=== PATIENT | female | born 1985 | race Caucasian/White ===

== ENCOUNTER 2019-03-16 20:33 | Emergency (ER) | payer OTHER ==
[2019-03-16 22:08] LABS: Urine Blood TRACE (NEG); Urine Glucose TRACE (NEG); Urine Protein 1+ (NEG); Urine Specific Gravity 1.025 (1.005-1.030); Urine pH 6.5 (5.0-7.0)
[2019-03-16 22:31] LABS: Urine Bacteria >50 /HPF (<20); Urine Culture Reflex Order REFLEXED; Urine RBC <5 /HPF (NONE SEEN)
--- NOTE | 2019-03-16 23:37 | ER ---
Nurse's Notes [facility] Name: Gwendolyn Al Age: 34 yrs Sex: Female : 1985 Arrival Date: 03/16/2019 Time: 20:44 Bed 16 Private MD: Diagnosis: Constipation;Urinary tract infection, site not specified Presentation: 03/16 20:50 Presenting complaint: Patient states: Reports left back pain for 1 week with HX of aj kidney stones. Transition of care: patient was not received from another setting of care. Care prior to arrival: None. 20:50 Method Of Arrival: Ambulatory aj 20:50 Acuity: SAMARIA 3 aj 21:15 Onset of symptoms was March 16, 2019. Risk Assessment: Do you want to hurt yourself or ea someone else? Patient reports no desire to harm self or others. Initial Sepsis Screen: Does the patient meet any 2 criteria? No. Patient's initial sepsis screen is negative. Does the patient have a suspected source of infection? No. Patient's initial sepsis screen is negative. Triage Assessment: 20:51 General: Appears in no apparent distress. comfortable, Behavior is calm, cooperative, aj appropriate for age. Pain: Complains of pain in posterior aspect of left lateral abdomen and anterior aspect of left lateral abdomen. Neuro: Level of Consciousness is awake, alert, obeys commands, Oriented to person, place, time, situation, Appropriate for age. Respiratory: Airway is patent Respiratory effort is even, unlabored, Respiratory pattern is regular, symmetrical. GI: No signs and/or symptoms were reported involving the gastrointestinal system. : Reports pain in left flank(s), in lower back. : Reports burning with urination. Derm: Skin is intact, is healthy with good turgor, Skin is pink, warm \T\ dry. normal. Historical: - Allergies: 20:51 No Known Allergies; aj - Immunization history:: Adult Immunizations up to date. - Social history:: Smoking status: Patient/guardian denies using tobacco. - Ebola Screening: : No symptoms or risks identified at this time. Screenin:15 Abuse screen: Denies threats or abuse. Nutritional screening: No deficits noted. ea Tuberculosis screening: No symptoms or risk factors identified. Fall Risk None identified. Assessment: 21:40 General: Appears uncomfortable, Behavior is calm, cooperative, appropriate for age. ea Pain: Complains of pain in anterior aspect of left lateral abdomen and posterior aspect of left lateral abdomen. Neuro: Level of Consciousness is awake, alert, obeys commands, Oriented to person, place, time, situation. Cardiovascular: Patient's skin is warm and dry. Respiratory: Airway is patent Respiratory effort is even, unlabored, Respiratory pattern is regular, symmetrical. GI: Abdomen is non-distended, obese, Bowel sounds present X 4 quads. Abd is soft and non tender X 4 quads. Abd is soft X 4 quads. Derm: Skin is pink, warm \T\ dry. 22:21 Reassessment: Patient and/or family updated on plan of care and expected duration. Pain ea level reassessed. Patient is alert, oriented x 3, equal unlabored respirations, skin warm/dry/pink. Pt taken to CT. 23:12 Reassessment: Patient and/or family updated on plan of care and expected duration. Pain ea level reassessed. Patient is alert, oriented x 3, equal unlabored respirations, skin warm/dry/pink. Awaiting on CT results. 03/17 00:10 Reassessment: Patient and/or family updated on plan of care and expected duration. Pain ea level reassessed. Patient is alert, oriented x 3, equal unlabored respirations, skin warm/dry/pink. Discharge instruction given to patient, verbalized the understanding of instruction. Pt left ED ambulatory tolerating well. Vital Signs: 03/16 20:51 BP 126 / 74; Pulse 100; Resp 19; Temp 98.2; Pulse Ox 99% on R/A; Weight 108.86 kg; aj Height 5 ft. 10 in. (177.80 cm); 22:04 BP 114 / 72; Pulse 101; Resp 18; Pulse Ox 98% ; ea 23:50 BP 123 / 68; Pulse 90; Resp 18; Temp 98.2; Pulse Ox 99% on R/A; ea 20:51 Body Mass Index 34.44 (108.86 kg, 177.80 cm) aj ED Course: 20:44 Patient arrived in ED. es 20:51 Triage completed. aj 20:51 Arm band placed on right wrist. aj 21:03 Margi Story FNP-C is [facility]. kb 21:03 Brigid Gallagher MD is Attending Physician. kb 21:06 Jaqueline Hoyt, RN is Primary Nurse. ea 21:15 Patient has correct armband on for positive identification. Bed in low position. Call ea light in reach. Side rails up X 1. 22:43 CT Stone Protocol In Process Unspecified. EDHI 03/17 00:10 No provider procedures requiring assistance completed. Patient did not have IV access ea during this emergency room visit. Administered Medications: 00:14 Drug: Augmentin 875 mg Route: PO; ea 00:15 Follow up: Response: Medication administered at discharge. ea Outcome: 03/16 23:36 Discharge ordered by MD. kb 03/17 00:14 Patient left the ED. ea 00:15 Discharged to home ambulatory. ea 00:15 Discharged to home ambulatory. 00:15 Condition: improved 00:15 Discharge instructions given to patient, Instructed on discharge instructions, follow up and referral plans. medication usage, Demonstrated understanding of instructions, follow-up care, medications. 00:15 Prescriptions given X 1. Signatures: Dispatcher [employer] EDHI Margi Story, SCIENCE EDUCATION PROFESSOR-C SCIENCE EDUCATION PROFESSOR-Adele Palmer, RN Linda Levi Elena, RN NAVNEET mchugh
--- NOTE | 2019-03-16 23:37 | EDPHYS ---
Physician Documentation [facility] Name: Gwendolyn Al Age: 34 yrs Sex: Female : 1985 Arrival Date: 03/16/2019 Time: 20:44 Bed 16 Private MD: ED Physician Brigid Gallagher HPI: 03/17 00:05 This 34 yrs old Female presents to ER via Ambulatory with complaints of kb Possible Kidney Stone, Finger Injury, Leg Injury. 00:05 The patient presents with flank pain, bilaterally, urinary symptoms, dysuria, kb frequency. Onset: The symptoms/episode began/occurred 1 week(s) ago. Modifying factors: The symptoms are alleviated by nothing, the symptoms are aggravated by nothing. Associated signs and symptoms: Pertinent positives: dysuria, urinary frequency, flank pain. Severity of symptoms: At their worst the symptoms were moderate, in the emergency department the symptoms are unchanged. The patient has experienced similar episodes in the past, several times. The patient has not recently seen a physician. Historical: - Allergies: 03/16 20:51 No Known Allergies; aj - Immunization history:: Adult Immunizations up to date. - Social history:: Smoking status: Patient/guardian denies using tobacco. - Ebola Screening: : No symptoms or risks identified at this time. ROS: 03/17 00:05 Constitutional: Negative for fever, chills, and weight loss, Cardiovascular: Negative kb for chest pain, palpitations, and edema, Respiratory: Negative for shortness of breath, cough, wheezing, and pleuritic chest pain, Abdomen/GI: Negative for abdominal pain, nausea, vomiting, diarrhea, and constipation, MS/Extremity: Negative for injury and deformity, Skin: Negative for injury, rash, and discoloration, Neuro: Negative for headache, weakness, numbness, tingling, and seizure. Back: Positive for flank pain, bilaterally. : Positive for urinary symptoms, flank pain, urinary frequency, burning with urination. Exam: 00:04 Constitutional: This is a well developed, well nourished patient who is awake, alert, kb and in no acute distress. Head/Face: Normocephalic, atraumatic. ENT: Nares patent. No nasal discharge, no septal abnormalities noted. Tympanic membranes are normal and external auditory canals are clear. Oropharynx with no redness, swelling, or masses, exudates, or evidence of obstruction, uvula midline. Mucous membranes moist. Neck: Trachea midline, no thyromegaly or masses palpated, and no cervical lymphadenopathy. Supple, full range of motion without nuchal rigidity, or vertebral point tenderness. No Meningismus. Chest/axilla: Normal chest wall appearance and motion. Nontender with no deformity. No lesions are appreciated. Cardiovascular: Regular rate and rhythm with a normal S1 and S2. No gallops, murmurs, or rubs. Normal PMI, no JVD. No pulse deficits. Respiratory: Lungs have equal breath sounds bilaterally, clear to auscultation and percussion. No rales, rhonchi or wheezes noted. No increased work of breathing, no retractions or nasal flaring. Abdomen/GI: Soft, non-tender, with normal bowel sounds. No distension or tympany. No guarding or rebound. No evidence of tenderness throughout. Skin: Warm, dry with normal turgor. Normal color with no rashes, no lesions, and no evidence of cellulitis. MS/ Extremity: Pulses equal, no cyanosis. Neurovascular intact. Full, normal range of motion. Neuro: Awake and alert, GCS 15, oriented to person, place, time, and situation. Cranial nerves II-XII grossly intact. Motor strength 5/5 in all extremities. Sensory grossly intact. Cerebellar exam normal. Normal gait. 00:04 Back: CVA tenderness, that is mild, is noted bilaterally. Vital Signs: 03/16 20:51 BP 126 / 74; Pulse 100; Resp 19; Temp 98.2; Pulse Ox 99% on R/A; Weight 108.86 kg; aj Height 5 ft. 10 in. (177.80 cm); 22:04 BP 114 / 72; Pulse 101; Resp 18; Pulse Ox 98% ; ea 23:50 BP 123 / 68; Pulse 90; Resp 18; Temp 98.2; Pulse Ox 99% on R/A; ea 20:51 Body Mass Index 34.44 (108.86 kg, 177.80 cm) aj MDM: 21:05 Patient medically screened. kb 23:21 Data reviewed: vital signs, nurses notes. Data interpreted: Pulse oximetry: on room air kb is 98 %. Interpretation: normal. Counseling: I had a detailed discussion with the patient and/or guardian regarding: the historical points, exam findings, and any diagnostic results supporting the discharge/admit diagnosis, lab results, radiology results, the need for outpatient follow up, a family practitioner, to return to the emergency department if symptoms worsen or persist or if there are any questions or concerns that arise at home. 03/16 21:24 Order name: Urine Microscopic Only; Complete Time: 22:36 kb 03/16 21:59 Order name: Urine Dipstick--Ancillary (enter results); Complete Time: 22:14 oe 03/16 21:59 Order name: Urine --Ancillary (enter results); Complete Time: 22:14 oe 03/16 22:14 Order name: CT Stone Protocol kb 03/16 22:35 Order name: Urine Culture EDOR 03/16 21:24 Order name: Urine Test (obtain specimen); Complete Time: 22:09 kb 03/16 21:24 Order name: Urine Dipstick-Ancillary (obtain specimen); Complete Time: 22:09 kb Administered Medications: 03/17 00:14 Drug: Augmentin 875 mg Route: PO; ea 00:15 Follow up: Response: Medication administered at discharge. jeison Disposition: 02:19 Co-signature as Attending Physician, Brigid Gallagher MD. ma2 Disposition: 03/16/19 23:36 Discharged to Home. Impression: Constipation, Urinary tract infection, site not specified. - Condition is Stable. - Discharge Instructions: Constipation, Adult, [id number], Urinary Tract Infection, Adult, [id number]. - Prescriptions for Augmentin 875- 125 mg Oral Tablet - take 1 tablet by ORAL route every 12 hours for 10 days; 20 tablet. - Medication Reconciliation Form, Thank You Letter, Antibiotic Education, Prescription Opioid Use form. - Follow up: Emergency Department; When: As needed; Reason: Worsening of condition. Follow up: Private Physician; When: 2 - 3 days; Reason: Recheck today's complaints, Continuance of care, Re-evaluation by your physician. Signatures: Dispatcher [employer] Margi Yee, LINDA BENSON-Adele Palmer RN Jaqueline Hernandez RN RN ea Alzahri, Mohammad, MD MD ma2 Corrections: (The following items were deleted from the chart) 00:14 03/16 23:36 03/16/2019 23:36 Discharged to Home. Impression: Constipation; Urinary ea tract infection, site not specified. Condition is Stable. Forms are Medication Reconciliation Form, Thank You Letter, Antibiotic Education, Prescription Opioid Use. Follow up: Emergency Department; When: As needed; Reason: Worsening of condition. Follow up: Private Physician; When: 2 - 3 days; Reason: Recheck today's complaints, Continuance of care, Re-evaluation by your physician. kb
[2019-03-17] MEDS ORDERED: AMOX/K CLAV 875 MG TAB ONE (00:09)
--- NOTE | 2019-03-17 11:24 | RAD REPORT ---
EXAM DESCRIPTION: CT - Stone Protocol - 03/17/2019 1:14 am CLINICAL HISTORY: 34 years Female, FLANK PAIN COMPARISON: None. TECHNIQUE: 3 mm axial images of the abdomen and pelvis were obtained without intravenous contrast. 3 mm coronal and sagittal reformatted images were obtained. This exam was performed according to our departmental dose-optimization program, which includes autom ated exposure control, adjustment of the mA and/or kV according to patient size and/or use of iterati ve reconstruction technique. INTRAVENOUS CONTRAST: None. FINDINGS: Lung bases: Normal. Liver: Normal. Spleen: Normal. Pancreas: Normal. Gallbladder: Normal. Right adrenal gland: Normal. Left adrenal gland: Normal. Right kidney: There are numerous nonobstructing stones within the renal papillae throughout the kidne y suggestive of medullary sponge kidney. The ureter is unremarkable. Left kidney: There are numerous nonobstructing stones within the renal papillae throughout the kidney suggestive of medullary sponge kidney. The ureter is unremarkable. Retroperitoneal structures: Normal. Bowel survey: There is a large residual stool throughout the ascending, transverse, and descending co moise. The distal ileum is unremarkable. The appendix is unremarkable.. Urinary bladder: Normal. Uterus and adnexa: Normal. Peritoneal cavity: Normal. Mesentery structures: Normal. Abdominal wall: No hernia. Bony structures: No suspicious lesions. There is evidence of posterior spinal fusion at L5-S1. IMPRESSION: 1. Numerous nonobstructing medullary stones bilaterally suggestive of medullary sponge k idney. Other considerations include renal tubular acidosis. 2. No evidence of obstructive uropathy. 3. Large amount residual stool within the ascending, transverse, and descending colon. Electronically signed by: Ron Sheriff MD 03/16/2019 10:54 PM CDT Due to temporary technical issues with the PACS/Fluency reporting system, reports are being signed by the in house radiologist as a courtesy to ensure prompt reporting. The interpreting radiologist is f ully responsible for the content of the report.
== END 2019-03-17 00:14 | disposition home or self-care (01) ==
LOC: ER 20:33
DX: N39.0 Urinary tract infection, site not specified (principal); K59.00 Constipation, unspecified
CPT/HCPCS: 74176; 76377; 81003; 81015; 81025; 87077; 87086; 87088; 87186; 99283